=== PATIENT | female | born 1995 | race Caucasian/White ===

== ENCOUNTER 2020-02-29 04:21 | Emergency (ER) | payer MEDICAID ==
[~2020-02-29] VITALS: Ht 154.9 cm; Wt 52.2 kg
[2020-02-29 04:36] VITALS: Ht 154.9 cm; Wt 52.2 kg
[2020-02-29 05:21] LABS: BASOPHIL % 0.5 % (0-2); PLATELET COUNT 320 x10^3mcL (130-400); RED CELL DISTRIBUTION WIDTH 12.1 % (11.5-14.5)
[2020-02-29 05:39] LABS: CALCIUM 8.4 mg/dL (8.5-10.1); CARBON DIOXIDE 27.2 mmol/L (21-32); CHLORIDE SERUM 104 mmol/L (98-107); CREATININE SERUM 0.7 mg/dL (0.6-1.0); GFR1 > 60 mL/min; GLUCOSE SERUM 109 mg/dL (74-106); POTASSIUM SERUM 3.7 mmol/L (3.5-5.1); SODIUM SERUM 137 mmol/L (136-145)
[2020-02-29 05:44] LABS: ALBUMIN 3.8 g/dL (3.4-5.0); ALKALINE PHOSPHATASE 80 U/L (46-116); ALT/SGPT 32 U/L (14-59); AST/SGOT 14 U/L (15-37); BILIRUBIN TOTAL 0.52 mg/dL (0.20-1.00); TOTAL PROTEIN, SERUM 6.9 g/dL (6.4-8.2)
[2020-02-29 07:29] VITALS: BP 110/70
[2020-03-01 09:05] LABS: RHEUMATOID ARTHRITIS FACTOR <10.0 IU/mL (0.0-13.9)
== END 2020-02-29 07:29 | disposition home or self-care (01) ==
LOC: ED 04:21
PROVIDERS: Emergency Medicine
DX: M13.871 Other specified arthritis, right ankle and foot (principal); M13.862 Other specified arthritis, left knee; M13.842 Other specified arthritis, left hand; M13.841 Other specified arthritis, right hand; Z88.0 Allergy status to penicillin
CPT/HCPCS: 86431; 87491; 87591; J7030; Q0092